=== PATIENT | female | born 1940 | race Caucasian/White ===

== ENCOUNTER 2017-03-27 12:48 | Observation (INO) | payer MEDICARE, OTHER ==
[2017-03-27] VITALS (8 sets, daily range): BP systolic 135–173; BP diastolic 78–85; PULSE 62–81; RESP 16–18; TEMP 97.1–98.6; O2SAT 93–98
[~2017-03-27 12:48] MED LIST: ADVA500A INH; ALLO300T2 PO; ALPR0.5T3 PO; ASPI81 PO; CALC.25 PO; DILT300C PO; HYDR200T42 PO; LEVO.05 PO; NORC7.5T PO; POTA-243 PO; PRAV40TA PO; RANI300T PO; TAB-TAB PO; TORS1TAB12 PO
[2017-03-27] MEDS ORDERED: SODIUM CHLOR 0.9% 1000 ML INJ 1,000 ML IV ONE (12:55)
[2017-03-27] MEDS ORDERED: SODIUM CHLORIDE 0.9% FLUSH 10 ML FLUSH IVF PRN (13:00)
[2017-03-27 13:22] LABS: AUTOMATED NEUTROPHIL # 2.2 TH/MM3 (1.8-7.7); BASOPHIL % 1.1 % (0.0-2.0); EOSINOPHIL # 0.1 TH/MM3 (0-0.4); EOSINOPHIL % 2.9 % (0.0-4.0); HEMO FLAGS DIFF FINAL; LYMPH % 20.3 % (9.0-44.0); LYMPHOCYTE # 0.7 TH/MM3 (1.0-4.8); MEAN CORPUSCULAR HEMOGLOBIN 30.2 PG (27.0-34.0); MEAN CORPUSCULAR HGB CONC 33.6 % (32.0-36.0); MONO % 13.7 % (0.0-8.0); PLATELET COUNT 152 TH/MM3 (150-450); RED BLOOD COUNT 4.01 MIL/MM3 (4.00-5.30); RED CELL DISTRIBUTION WIDTH 12.6 % (11.6-17.2); WHITE BLOOD COUNT 3.5 TH/MM3 (4.0-11.0)
[2017-03-27 13:29] LABS: POTASSIUM 3.7 MEQ/L (3.5-5.1)
[2017-03-27 13:32] LABS: BICARBONATE 22.6 MEQ/L (21.0-32.0)
--- NOTE | 2017-03-27 13:51 | RADRPT ---
EXAM DATE/TIME: 03/27/2017 13:26 [facility] COMPARISON: No previous studies available for comparison. INDICATIONS : Left upper and lower extremity numbness since yesterday. RADIATION DOSE: 65.14 CTDIvol (mGy) MEDICAL HISTORY : Hypertension. Chronic obstructive pulmonary disease.Renail failure. SURGICAL HISTORY : Hysterectomy. Right breast lumpectomy. ENCOUNTER: Initial ACUITY: 2 days PAIN SCALE: 0/10 LOCATION: Left cranial TECHNIQUE: Multiple contiguous axial images were obtained of the head. Using automated exposure control and adj ustment of the mA and/or kV according to patient size, radiation dose was kept as low as reasonably a chievable to obtain optimal diagnostic quality images. DICOM format image data is available electro nically for review and comparison. FINDINGS: CEREBRUM: The ventricles are normal for age. No evidence of midline shift, mass lesion, hemorrhage or acute in farction. No extra-axial fluid collections are seen. POSTERIOR FOSSA: The cerebellum and brainstem are intact. The 4th ventricle is midline. The cerebellopontine angle i s unremarkable. EXTRACRANIAL: The visualized portion of the orbits is intact. SKULL: The calvaria is intact. No evidence of skull fracture. CONCLUSION: Normal examination for a patient of this age. James Morrison MD on March 27, 2017 at 13:47 Board Certified Radiologist. This report was verified electronically.
--- NOTE | 2017-03-27 14:18 | PD ---
HPI Chief Complaint: Neuro Symptoms/ Deficits Time Seen by Provider: 12:55 Travel History International Travel<30 days: No Contact w/Intl Traveler<30days: No Traveled to known affect area: No History of Present Illness HPI The patient is 76 years old. She developed left arm and left leg weakness yesterday afternoon. She describes her left leg and arm as feeling very heavy. Symptoms have been more or less constant since their onset. She has no other complaint. She denies history of stroke. Location neurologic. Timing constant. PFSH Past Medical History Arthritis: Yes Asthma: Yes Autoimmune Disease: Yes (CHRONIC RENAL FAILURE) Blood Disorders: No Heart Rhythm Problems: No Cancer: No Cardiovascular Problems: Yes High Cholesterol: Yes Chest Pain: No Congestive Heart Failure: No COPD: Yes Cerebrovascular Accident: No Diabetes: No Diminished Hearing: No Gastrointestinal Disorders: Yes GERD: Yes Genitourinary: Yes Headaches: No Hiatal Hernia: Yes Hypertension: Yes Immune Disorder: Yes (LUPUS) Kidney Stones: No Musculoskeletal: Yes Neurologic: No Psychiatric: No Reproductive: No Respiratory: No Migraines: No Myocardial Infarction: No Renal Failure: Yes (RELATED TO LUPUS (NO DIALYSIS)) Seizures: No Sleep Apnea: No Thyroid Disease: Yes Influenza Vaccination: Yes ?: Not Past Surgical History AICD: No Arteriovenous Shunt: No Gynecologic Surgery: Yes (HYSTERECTOMY 1979, LUMPECTOMY RIGHT BREAST) Hysterectomy: Yes Insulin Pump: No Joint Replacement: No Pacemaker: No Other Surgery: Yes (HYSTERECTOMY BREAST CYST RIGHT BX THYROID ) Social History Alcohol Use: Yes (ONCE WEEKLY) Tobacco Use: No Substance Use: No Allergies-Medications (Allergen,Severity, Reaction): Coded Allergies: Sulfa (Verified Allergy, Severe, HIVES, 10/25/12) Reported Meds & Prescriptions Reported Meds & Active Scripts Active Reported [place] 7.5/325 (Hydrocodone-Acetaminophen) 7.5 Mg/325 Mg Tab 1-2 Tab PO Q6-8HPRN Allopurinol 300 Mg Tab 300 Mg PO DAILY Torsemide 20 Mg Tab 20 Mg PO DAILY Pravachol (Pravastatin Sodium) 40 Mg Tab 40 Mg PO DAILY Ranitidine Hcl (Ranitidine HCl) 300 Mg Cap 300 Mg PO DAILY Synthroid (Levothyroxine Sodium) 50 Mcg Tab 50 Mcg PO DAILY K-Dur (Potassium Chloride) 10 Meq Tabcr 10 Meq PO DAILY Aspirin 81 Mg Tab 81 Mg PO DAILY Alprazolam 0.5 Mg Tab 0.5 Mg PO TID Multivitamin (Multivitamins) 1 Tab Tab 1 Tab PO DAILY Rocaltrol (Calcitriol) 0.25 Mcg Cap 0.25 Mcg PO DAILY Advair Diskus 500/50 (Salmeterol Xinafoate/Fluticasone) 500 Mcg/50 Mcg Inhp 1 Puff INH BID Plaquenil (Hydroxychloroquine Sulfate) 200 Mg Tab 200 Mg PO BID Cardizem Cd (Diltiazem HCl) 300 Mg Cap 300 Mg PO DAILY Review of Systems Except as stated in HPI: all other systems reviewed are Neg Physical Exam Narrative GENERAL: 76-year-old female pleasant well-nourished well-developed SKIN: Focused skin assessment warm/dry. HEAD: Atraumatic. Normocephalic. EYES: Pupils equal and round. No scleral icterus. No injection or drainage. ENT: No nasal bleeding or discharge. Mucous membranes pink and moist. NECK: Trachea midline. No JVD. CARDIOVASCULAR: Regular rate and rhythm. No murmur appreciated. RESPIRATORY: No accessory muscle use. Clear to auscultation. Breath sounds equal bilaterally. GASTROINTESTINAL: Abdomen soft, non-tender, nondistended. Hepatic and splenic margins not palpable. MUSCULOSKELETAL: No obvious deformities. No clubbing. No cyanosis. No edema. NEUROLOGICAL: The cranial nerves of the face are normal. Handgrip is slightly decreased on left side compared to right. There is a pronator drift on the left side. The patient is unable to lift the left leg off the bed. PSYCHIATRIC: Appropriate mood and affect; insight and judgment normal. Data Data Last Documented VS Vital Signs Date Time Temp Pulse Resp B/P Pulse Ox O2 Delivery O2 Flow Rate FiO2 03/27/17 14:02 75 18 150/82 98 Room Air 03/27/17 12:57 98.6 Vital signs reviewed Orders Electrocardiogram (03/27/17 12:55) Complete Blood Count With Diff (03/27/17 12:55) Basic Metabolic Panel (Bmp) (03/27/17 12:55) Ct Brain W/O Iv Contrast(Rout) (03/27/17 12:55) Ecg Monitoring (03/27/17 12:55) Iv Access Insert/Monitor (03/27/17 12:55) Oximetry (03/27/17 12:55) Sodium Chloride 0.9% Flush (Ns Flush) (03/27/17 13:00) Mri Brain W/O Contrast (03/27/17 12:55) Mra Brain W/O Contrast (Cow) (03/27/17 12:55) Mra Carotids W Contrast (03/27/17 12:55) Neuro Checks Q2HX12,Q4H (03/27/17 12:55) Activity Bed Rest (03/27/17 12:55) Sodium Chlor 0.9% 1000 Ml Inj (Ns 1000 M (03/27/17 12:55) Aspirin (Aspirin) (03/27/17 14:30) Consult Neurology (03/27/17 ) Admit Order (Ed Use Only) (03/27/17 14:28) Place In Observation (03/27/17 ) Vital Signs (Adult) Q4H (03/27/17 14:28) Neuro Checks Q4H (03/27/17 14:28) Activity Oob With Assistance (03/27/17 14:28) Inspector Material Disposition / Telemetry .CONTINUOUS (03/27/17 14:28) Diet Npo (03/27/17 Dinner) Sodium Chloride 0.9% Flush (Ns Flush) (03/27/17 14:30) Sodium Chloride 0.9% Flush (Ns Flush) (03/27/17 21:00) Acetaminophen (Tylenol) (03/27/17 14:30) Ondansetron Inj (Zofran Inj) (03/27/17 14:30) Basic Metabolic Panel (Bmp) (03/28/17 06:00) Complete Blood Count With Diff (03/28/17 06:00) Resp Oxygen Theo C Titrat 1-4 L (03/27/17 ) Pt Request For Service (03/27/17 14:28) Ot Request For Service (03/27/17 14:28) Enoxaparin Inj (Lovenox Inj) (03/27/17 15:00) Naloxone Inj (Narcan Inj) (03/27/17 14:30) Docusate Sodium-Senna (Valeria-Colace) (03/27/17 21:00) Magnesium Hydroxide Liq (Milk Of Magnesi (03/27/17 14:30) Sennosides (Senokot) (03/27/17 14:30) Bisacodyl Supp (Dulcolax Supp) (03/27/17 14:30) Lactulose Liq (Lactulose Liq) (03/27/17 14:30) Labs Laboratory Tests Test 03/27/17 13:14 White Blood Count 3.5 TH/MM3 Red Blood Count 4.01 MIL/MM3 Hemoglobin 12.1 GM/DL Hematocrit 36.0 % Mean Corpuscular Volume 90.0 FL Mean Corpuscular Hemoglobin 30.2 PG Mean Corpuscular Hemoglobin 33.6 % Concent Red Cell Distribution Width 12.6 % Platelet Count 152 TH/MM3 Mean Platelet Volume 7.5 FL Neutrophils (%) (Auto) 62.0 % Lymphocytes (%) (Auto) 20.3 % Monocytes (%) (Auto) 13.7 % Eosinophils (%) (Auto) 2.9 % Basophils (%) (Auto) 1.1 % Neutrophils # (Auto) 2.2 TH/MM3 Lymphocytes # (Auto) 0.7 TH/MM3 Monocytes # (Auto) 0.5 TH/MM3 Eosinophils # (Auto) 0.1 TH/MM3 Basophils # (Auto) 0.0 TH/MM3 CBC Comment DIFF FINAL Differential Comment Sodium Level 139 MEQ/L Potassium Level 3.7 MEQ/L Chloride Level 106 MEQ/L Carbon Dioxide Level 22.6 MEQ/L Anion Gap 10 MEQ/L Blood Urea Nitrogen 24 MG/DL Creatinine 1.20 MG/DL Estimat Glomerular Filtration 44 ML/MIN Rate Random Glucose 99 MG/DL Calcium Level 9.4 MG/DL MDM Medical Decision Making Medical Screen Exam Complete: Yes Emergency Medical Condition: Yes Medical Record Reviewed: Yes Differential Diagnosis Stroke, TIA, spinal cord injury, radiculopathy Narrative Course EKG: Sinus, rate 72, LAFB CBC & BMP Diagram 03/27/17 13:14 Last [address] 03/27/17 1255 Signed Impressions: Service Date/Time: Monday, March 27, 2017 13:26 - CONCLUSION: Normal examination for a patient of this age. James Morrison MD PT to be admitted for CVA evaluation. D/w Dr Torrez D/w Dr Davalos Diagnosis Primary Impression: Stroke Qualified Code: I63.9 - Cerebrovascular accident (CVA), unspecified mechanism Admitting Information Admitting Physician Requests: Observation Alex Kingsley MD Mar 27, 2017 14:18
[2017-03-27] MEDS ORDERED: ONDANSETRON HCL 4 MG/2 ML VIAL IVP PRN (14:30)
[2017-03-27] MEDS ORDERED: ASPIRIN 325 MG TAB PO ONE (14:30)
[2017-03-27] MEDS ORDERED: MAGNESIUM HYDROXIDE SUSP 30 ML CUP PO PRN (14:30)
[2017-03-27] MEDS ORDERED: SODIUM CHLORIDE 0.9% FLUSH 10 ML FLUSH IV FLUSH PRN (14:30)
[2017-03-27] MEDS ORDERED: NALOXONE HCL 0.4 MG/ML AMP IV PRN (14:30)
[2017-03-27] MEDS ORDERED: ACETAMINOPHEN 325 MG TAB PO PRN (14:30)
[2017-03-27] MEDS ORDERED: SENNOSIDES 8.6 MG TAB PO PRN (14:30)
[2017-03-27] MEDS ORDERED: LACTULOSE SYRUP 20 GM/30 ML CUP PO PRN (14:30)
[2017-03-27] MEDS ORDERED: BISACODYL 10 MG SUPP RECTAL PRN (14:30)
[2017-03-27] MEDS: ENOXAPARIN SODIUM 40 MG/0.4 ML SYRINGE SQ SCH (14:47)
[2017-03-27] MEDS ORDERED: GADODIAMIDE PF 287 MG/ML 20 ML VIAL (for RAD MRI) IV ONE (14:48)
--- NOTE | 2017-03-27 15:06 | HHI.HP ---
HPI Service [facility] Primary Care Physician Jose Torrez MD Admission Diagnosis CVA Diagnoses: Chief Complaint: Left arm and left leg weakness. Travel History International Travel<30 Days: No Contact w/Intl Traveler <30 Da: No Traveled to Known Affected Are: No History of Present Illness Ms. Bhardwaj is a pleasant 76-year-old female with a history of SLE and lupus nephritis, hypertension who presents to the emergency department due to left- sided upper and lower extremity weakness. At around 4 PM on 03/26/2017 patient was watching TV and suddenly noticed her left side was very weak. She did not have any facial asymmetry or speech difficulty. She did not have any chest pain , shortness of breath, cough. No fever or chills. Her symptoms persisted throughout the day and night. She she will hope for resolution of her symptoms. Due to persistent symptoms patient decided to come to the Department for further evaluation. Patient denies any changes in bowel or bladder habits. She used to take aspirin once a day. However she stopped taking aspirin 6 months ago. Review of Systems Except as stated in HPI: all other systems reviewed are Neg Past Family Social History Past Medical History SLE, chronic kidney disease Past Surgical History Hysterectomy 1979, right breast lumpectomy Reported Medications [place] 7.5/325 (Hydrocodone-Acetaminophen) 7.5 Mg/325 Mg Tab 1-2 Tab PO Q6-8HPRN Allopurinol 300 Mg Tab 300 Mg PO DAILY Torsemide 20 Mg Tab 20 Mg PO DAILY Pravachol (Pravastatin Sodium) 40 Mg Tab 40 Mg PO DAILY Ranitidine Hcl (Ranitidine HCl) 300 Mg Cap 300 Mg PO DAILY Synthroid (Levothyroxine Sodium) 50 Mcg Tab 50 Mcg PO DAILY K-Dur (Potassium Chloride) 10 Meq Tabcr 10 Meq PO DAILY Aspirin 81 Mg Tab 81 Mg PO DAILY Alprazolam 0.5 Mg Tab 0.5 Mg PO TID Multivitamin (Multivitamins) 1 Tab Tab 1 Tab PO DAILY Rocaltrol (Calcitriol) 0.25 Mcg Cap 0.25 Mcg PO DAILY Advair Diskus 500/50 (Salmeterol Xinafoate/Fluticasone) 500 Mcg/50 Mcg Inhp 1 Puff INH BID Plaquenil (Hydroxychloroquine Sulfate) 200 Mg Tab 200 Mg PO BID Cardizem Cd (Diltiazem HCl) 300 Mg Cap 300 Mg PO DAILY Allergies: Coded Allergies: Sulfa (Verified Allergy, Severe, HIVES, 10/25/12) Family History Grandmother had stroke. Social History Drinks about once a week. Denies using tobacco or illicit drugs. Physical Exam Vital Signs Vital Signs Date Time Temp Pulse Resp B/P Pulse Ox O2 Delivery O2 Flow Rate FiO2 03/27/17 14:32 93 03/27/17 14:02 75 18 150/82 98 Room Air 03/27/17 13:11 74 18 171/85 98 Room Air 03/27/17 12:57 98.6 81 18 173/85 97 Physical Exam GENERAL: This is a well-nourished, well-developed patient, in no apparent distress. SKIN: No rashes, ecchymoses or lesions. Warm and dry. HEAD: Atraumatic. Normocephalic. No temporal or scalp tenderness. EYES: Pupils equal round and reactive. No injection or drainage. ENT: Nose without bleeding, purulent drainage or septal hematoma. Airway patent. NECK: Trachea midline. No lymphadenopathy. Supple, nontender, no meningeal signs. CARDIOVASCULAR: Regular rate and rhythm without murmurs, gallops, or rubs. No JVD. RESPIRATORY: Clear to auscultation. Breath sounds equal bilaterally. No wheezes , rales, or rhonchi. GASTROINTESTINAL: Abdomen soft, non-tender, nondistended. No guarding. MUSCULOSKELETAL: Extremities without clubbing, cyanosis, or edema. NEUROLOGICAL: Awake and alert. Cranial nerves II through XII intact. LUE 4/5 and LLE 3/5. Normal speech. Laboratory Laboratory Tests Test 03/27/17 13:14 White Blood Count 3.5 Red Blood Count 4.01 Hemoglobin 12.1 Hematocrit 36.0 Mean Corpuscular Volume 90.0 Mean Corpuscular Hemoglobin 30.2 Mean Corpuscular Hemoglobin 33.6 Concent Red Cell Distribution Width 12.6 Platelet Count 152 Mean Platelet Volume 7.5 Neutrophils (%) (Auto) 62.0 Lymphocytes (%) (Auto) 20.3 Monocytes (%) (Auto) 13.7 Eosinophils (%) (Auto) 2.9 Basophils (%) (Auto) 1.1 Neutrophils # (Auto) 2.2 Lymphocytes # (Auto) 0.7 Monocytes # (Auto) 0.5 Eosinophils # (Auto) 0.1 Basophils # (Auto) 0.0 CBC Comment DIFF FINAL Differential Comment Sodium Level 139 Potassium Level 3.7 Chloride Level 106 Carbon Dioxide Level 22.6 Anion Gap 10 Blood Urea Nitrogen 24 Creatinine 1.20 Estimat Glomerular Filtration 44 Rate Random Glucose 99 Calcium Level 9.4 Result Diagram: 03/27/17 1314 03/27/17 1314 Imaging Last Impressions Head CT 03/27/17 1255 Signed Impressions: Service Date/Time: Monday, March 27, 2017 13:26 - CONCLUSION: Normal examination for a patient of this age. James Morrison MD Assessment and Plan Problem List: (1) Acute CVA (cerebrovascular accident) ICD Code: I63.9 Status: Acute (2) Hypertension ICD Code: I10 Status: Acute (3) CKD (chronic kidney disease) stage 3, GFR 30-59 ml/min ICD Code: N18.3 Status: Acute (4) SLE (systemic lupus erythematosus) ICD Code: M32.9 Status: Acute Assessment and Plan Ms. Bhardwaj is a pleasant 76-year-old female with a history of SLE, lupus nephritis, hypertension who presents to the emergency department today due to left-sided weakness that started around 4 PM on 03/26/2017. Patient denies any facial asymmetry, speech difficulty. CT head shows no acute ischemia or hemorrhage. - Probable acute cerebrovascular accident - MRI brain and MRA brain as well as carotid ultrasound pending. - Patient received aspirin in the emergency department. We'll continue aspirin 325 mg daily. - Will obtain lipid profile and based on ASCVD score, we will consider statin. - Neurology consult pending. - PT/OT consult pending. Patient is able to swallow well. Will continue heart healthy diet. - Continue telemetry. - SLE - CKD stage III - likely due to lupus nephritis - Creatinine 1.20. Continue to monitor and avoid nephrotoxins. - Hypertension - Patient takes Diltiazem for HTN. Discussed with patient at length - she denies any history of Afib. - Will not start Diltiazem. Start Nifedipine 30mg Qday tomorrow. - Permissive hypertension is reasonable for now up to BP 220/110 Full code. Lovenox. Linda Davalos DO Mar 27, 2017 3:06 pm
--- NOTE | 2017-03-27 15:18 | RADRPT ---
EXAM DATE/TIME: 03/27/2017 14:14 [facility] COMPARISON: No previous studies available for comparison. INDICATIONS : Left sided weakness. MEDICAL HISTORY : Renal failure, chronic. Hypertension. SURGICAL HISTORY : Hysterectomy. ENCOUNTER: Initial ACUITY: 1 day PAIN SCORE: 0/10 LOCATION: cranial TECHNIQUE: Multiplanar, multisequence MRI of the brain was performed without contrast. FINDINGS: There is an acute infarct in the deep white matter of the right parietal lobe measuring around 1 cm i n diameter. There is also a tiny subcentimeter infarct in the right frontal lobe. This may be seconda ry to embolic phenomenon. Minimal white matter ischemic change. No mass, hemorrhage or shift. No hydr ocephalus. No abnormal extra-axial fluid collections. CONCLUSION: 1. Small acute infarcts in the deep white matter in the right posterior periventricular region and al so peripherally in the right frontal lobe, possibly embolic. Minimal white matter ischemic change. James Morrison MD on March 27, 2017 at 15:12 Board Certified Radiologist. This report was verified electronically.
--- NOTE | 2017-03-27 15:20 | RADRPT ---
EXAM DATE/TIME: 03/27/2017 14:14 [facility] COMPARISON: No previous studies available for comparison. INDICATIONS : Left sided weakness. MEDICAL HISTORY : Hypertension. Renal failure, chronic. SURGICAL HISTORY : Hysterectomy. ENCOUNTER: Initial ACUITY: 1 day PAIN SCORE: 0/10 LOCATION: cranial Please note a normal MRA of the brain does not entirely exclude the possibility of a small aneurysm, nor the possibility of distal intracranial vessel disease. TECHNIQUE: 3D time of flight MRA was performed. Source images, multiplanar STS MIP, and 3D volume MIP reconstru ctions were reviewed. FINDINGS: There is excellent visualization of the major intracranial arteries out to the second-order branch ve ssels. There is no evidence for aneurysm, vessel truncation or stenosis, and no evidence for vascula r malformation. CONCLUSION: Normal examination for a patient of this age. James Morrison MD on March 27, 2017 at 15:16 Board Certified Radiologist. This report was verified electronically.
[2017-03-27] MEDS ORDERED: LEVO.05 PO (15:40)
[2017-03-27] MEDS ORDERED: DILT300C3 PO (15:40)
--- NOTE | 2017-03-27 15:40 | RADRPT ---
EXAM DATE/TIME: 03/27/2017 14:14 [facility] COMPARISON: No previous studies available for comparison. INDICATIONS : Left side weakness. CONTRAST: 20 cc Omniscan (gadodiamide) IV MEDICAL HISTORY : Hypertension. Renal failure, chronic. SURGICAL HISTORY : Hysterectomy. ENCOUNTER: Initial ACUITY: 1 day PAIN SCORE: 0/10 LOCATION: neck Percent stenosis is calculated using the diameter of the stenotic region over the diameter of the nor mal distal internal carotid artery. TECHNIQUE: Bolus infused MRA of the extracranial circulation was performed using a neurovascular coil. Post pro cessing was performed including rotating subvolume maximum intensity projections of each carotid elsa ry, rotating full volume maximum intensity projections of both carotid arteries, sagittal and coronal sliding thin slab reformations of each carotid artery, and left oblique sliding thin slab reformatio n through the aortic arch to include the origin of the arch branch vessels. FINDINGS: AORTIC ARCH: There is a three vessel origin of the great vessels from the aorta. No evidence of ostial narrowing. RIGHT CAROTID: The common carotid artery is intact. The carotid bulb has a normal configuration without ulceration or narrowing. The internal carotid artery lumen is smooth without stenosis. The external carotid ar nile is intact. LEFT CAROTID: The common carotid artery is intact. The carotid bulb has a normal configuration without ulceration or narrowing. The internal carotid artery lumen is smooth without stenosis. The external carotid ar nile is intact. VERTEBRALS: The vertebral arteries have a symmetric diameter. No stenotic lesions are seen. CONCLUSION: Normal examination for a patient of this age. James Morrison MD on March 27, 2017 at 15:36 Board Certified Radiologist. This report was verified electronically.
[2017-03-27] MEDS ORDERED: PILL SPLITTER OTHER PRN (19:15)
[2017-03-27] MEDS: SODIUM CHLORIDE 0.9% FLUSH 10 ML FLUSH IV FLUSH SCH (21:00)
[2017-03-27] MEDS: DOCUSATE SODIUM 50 MG/SENNA 8.6 MG TAB PO SCH (22:08)
[2017-03-28] VITALS: BP 131/70; PULSE 60; RESP 16; TEMP 96; O2SAT 96
[2017-03-28 04:00] VITALS: BP 142/74; PULSE 65; RESP 16; TEMP 96.8; O2SAT 96
[2017-03-28 06:39] LABS: AUTOMATED NEUTROPHIL # 2.1 TH/MM3 (1.8-7.7); BASOPHIL % 1.5 % (0.0-2.0); EOSINOPHIL # 0.1 TH/MM3 (0-0.4); EOSINOPHIL % 4.4 % (0.0-4.0); HEMATOCRIT 33.8 % (35.0-46.0); HEMO FLAGS DIFF FINAL; LYMPH % 19.4 % (9.0-44.0); LYMPHOCYTE # 0.6 TH/MM3 (1.0-4.8); MEAN CELL VOLUME 89.9 FL (80.0-100.0); MEAN CORPUSCULAR HEMOGLOBIN 30.1 PG (27.0-34.0); MEAN CORPUSCULAR HGB CONC 33.5 % (32.0-36.0); MONO % 11.3 % (0.0-8.0); NEUT % 63.4 % (16.0-70.0); PLATELET COUNT 156 TH/MM3 (150-450); RED BLOOD COUNT 3.77 MIL/MM3 (4.00-5.30); RED CELL DISTRIBUTION WIDTH 12.7 % (11.6-17.2); WHITE BLOOD COUNT 3.1 TH/MM3 (4.0-11.0)
[2017-03-28 06:48] LABS: POTASSIUM 3.7 MEQ/L (3.5-5.1)
[2017-03-28 07:01] LABS: BICARBONATE 22.4 MEQ/L (21.0-32.0)
[2017-03-28 08:00] VITALS: BP 154/77; PULSE 68; RESP 18; TEMP 97.8; O2SAT 96; O2SAT 97
[2017-03-28] MEDS ORDERED: NIFEdipine 30 MG SUSTAINED RELEASE TAB PO SCH (09:00)
[2017-03-28] MEDS ORDERED: ASPIRIN 325 MG TAB PO SCH (09:00)
[2017-03-28] MEDS: SODIUM CHLORIDE 0.9% FLUSH 10 ML FLUSH IV FLUSH SCH (09:00)
[2017-03-28] MEDS ORDERED: CLOPIDOGREL 75 MG TAB PO SCH (09:00)
[2017-03-28] MEDS ORDERED: amLODIPine BESYLATE 5 MG TAB PO SCH (09:00)
--- NOTE | 2017-03-28 09:32 | MB ---
cc: SANDY MIRAMONTES M.D. DATE OF CONSULTATION 03/28/2017 REASON FOR CONSULTATION The patient is a 76-year-old with history of having the onset of symptoms the day before yesterday. She only came yesterday to the emergency room. I spoke to the ED physician. The patient developed sudden onset left-sided weakness and decided to wait until the next day as she wanted to see if the symptoms would improve. She realized she was having a stroke. PAST MEDICAL HISTORY 1. She has a history of hyperlipidemia. 2. Low thyroid. 3. She has a history of some apparent renal dysfunction. 4. Lupus. MEDICATIONS Apparently she does not take much medication and no reported aspirin, she denies taking aspirin on a regular basis at the time of my inquiry earlier today. NEUROLOGICAL EXAMINATION On exam the patient was awake, alert pleasant, cooperative. Mentation is normal. Ocular movements and visual oreilly full. Pupils equal and reactive. She is having normal speech but there is some hemiparesis involving arm and leg. There is a mild arm drift and mild weakness on the left second class welder in comparison to the right. She has mild to moderate left lower extremity weakness on the bedside exam. Reflexes 1+ at the elbows and knees, reduced at the ankles. Plantar responses flexor right, equivocal left. IMAGING STUDIES MRI brain showed a small acute infarcts on the right posterior periventricular and also right frontal lobe suggesting embolic events. MRA head and neck essentially normal. LABORATORY DATA Pending a lipid profile. Initial chemistry with slightly elevated BUN and creatinine, though today's numbers are improved. CBC with white count low, being 3.5 yesterday and 3.1 today, hemoglobin 12.1, platelets 152. 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 Unclear if she has been on aspirin or not as discussed above. RECOMMENDATIONS For the time being I will add Plavix to the aspirin therapy and if she stays on this regimen it should be for 6-8 weeks. We will check an echocardiogram. May need transesophageal echocardiogram as the strokes are suspected to be embolic. The patient has a heart monitor. The EKG initially showed sinus rhythm. Thank you for asking us to assist in her care. MD DARLINE Mendez/FLOR[place] /8:17 AM /9:28 AM
--- NOTE | 2017-03-28 09:45 | HHI.PR ---
Subjective Remarks Follow up for acute stroke right MCA distribution. Patient is doing well. Her left sided weakness is improving. No chest pain, SOB, fever, chills. Wants to go home today. Objective Vitals Vital Signs Date Time Temp Pulse Resp B/P Pulse Ox O2 Delivery O2 Flow Rate FiO2 03/28/17 08:00 97.8 68 18 154/77 97 03/28/17 08:00 96 21 03/28/17 04:00 96.8 65 16 142/74 96 03/28/17 00:00 96.0 60 16 131/70 96 03/27/17 21:00 63 03/27/17 20:00 97.1 62 16 135/85 98 03/27/17 20:00 98 21 03/27/17 16:00 97.6 67 18 146/78 97 03/27/17 15:59 67 155/79 98 03/27/17 14:32 93 03/27/17 14:02 75 18 150/82 98 Room Air 03/27/17 13:11 74 18 171/85 98 Room Air 03/27/17 12:57 98.6 81 18 173/85 97 I/O 03/27/17 03/27/17 03/27/17 03/28/17 03/28/17 03/28/17 07:00 15:00 23:00 07:00 15:00 23:00 Intake Total 1215 ml Balance 1215 ml Intake Oral 240 ml IV Total 975 ml # Voids 2 # Bowel Movements 0 Result Diagram: 03/28/17 0600 03/28/17 0600 Imaging Last Impressions Neck Magnetic Resonance Angiography 03/27/17 1255 Signed Impressions: Service Date/Time: Monday, March 27, 2017 14:14 - CONCLUSION: Normal examination for a patient of this age. James Morrison MD Head Magnetic Resonance Angiography 03/27/17 1255 Signed Impressions: Service Date/Time: Monday, March 27, 2017 14:14 - CONCLUSION: Normal examination for a patient of this age. James Morrison MD Head CT 03/27/17 1255 Signed Impressions: Service Date/Time: Monday, March 27, 2017 13:26 - CONCLUSION: Normal examination for a patient of this age. James Morrison MD Brain MRI 03/27/17 1253 Signed Impressions: Service Date/Time: Monday, March 27, 2017 14:14 - CONCLUSION: 1. Small acute infarcts in the deep white matter in the right posterior periventricular region and also peripherally in the right frontal lobe, possibly embolic. Minimal white matter ischemic change. James Morrison MD Objective Remarks GENERAL: AOX3, NAD. SKIN: Warm and dry. HEAD: Normocephalic. EYES: No scleral icterus. No injection or drainage. NECK: Supple, trachea midline. No JVD or lymphadenopathy. CARDIOVASCULAR: Regular rate and rhythm without murmurs, gallops, or rubs. RESPIRATORY: Breath sounds equal bilaterally. No accessory muscle use. GASTROINTESTINAL: Abdomen soft, non-tender, nondistended. MUSCULOSKELETAL: No cyanosis, or edema. Left sided weakness improved. Left lower ext 4/5. BACK: Nontender without obvious deformity. No CVA tenderness. Procedures None. A/P Problem List: (1) Acute CVA (cerebrovascular accident) ICD Code: I63.9 Status: Acute (2) Hypertension ICD Code: I10 Status: Acute (3) CKD (chronic kidney disease) stage 3, GFR 30-59 ml/min ICD Code: N18.3 Status: Acute (4) SLE (systemic lupus erythematosus) ICD Code: M32.9 Status: Acute Assessment and Plan Ms. Bhardwaj is a pleasant 76-year-old female with a history of SLE, lupus nephritis, hypertension who presents to the emergency department today due to left-sided weakness that started around 4 PM on 03/26/2017. Patient denies any facial asymmetry, speech difficulty. CT head shows no acute ischemia or hemorrhage. - acute stroke, MCA distribution - appears to be embolic. - MRI brain reviewed by me, shows right posterior periventricular stroke as well as right frontal lobe stroke, possibly embolic. - Patient received aspirin in the emergency department. - Neurology consult evaluated patient. Recommends Aspirin, plavix for 6-8 weeks. - Will obtain 2D echo today. If it looks unremarkable, patient may be able to go home today. - Discussed with neurologist, Dr. Torrez who agrees with discharge plan if Echo is okay. - Continue telemetry. - ASCVD score is over 24%, we will start Lipitor 40mg QHS. - SLE - CKD stage III - likely due to lupus nephritis - Creatinine 1.20 --> 1.00. Continue to monitor and avoid nephrotoxins. - Hypertension - Patient takes Diltiazem for HTN. Discussed with patient at length - she denies any history of Afib. - Increase Amlodipine 2.5 to 5mg Qday. Full code. Jesse. Linda Davalos DO Mar 28, 2017 9:45 am
[2017-03-28] MEDS: DOCUSATE SODIUM 50 MG/SENNA 8.6 MG TAB PO SCH (10:01)
[2017-03-28] MEDS: ENOXAPARIN SODIUM 40 MG/0.4 ML SYRINGE SQ SCH (10:01)
[2017-03-28 10:03] LABS: HDL CHOLESTEROL 48.6 MG/DL (40.0-60.0)
--- NOTE | 2017-03-28 11:48 | HHI.FF ---
Face to Face Verification Diagnosis: (1) Acute CVA (cerebrovascular accident) (2) Hypertension (3) SLE (systemic lupus erythematosus) (4) CKD (chronic kidney disease) stage 3, GFR 30-59 ml/min Physical Therapy Order: Evaluate and Treat, Improve ambulation, Strength and gait training Occupational Therapy Order: Evaluate and Treat, Improve ADL, Gross motor coordination, Fine motor coordination I have seen patient Priscilla Bhardwaj on 03/28/17. My clinical findings support the need for the requested home health care services because: Deconditioned w/ increased weakness Limited ability to care for self Need for psychosocial assistance High risk of falls I certify that my clinical findings support that this patient is homebound because: Unsteady gait/balance Unsafe to leave home unassisted Need for psychosocial assistance Unable to use public transportation Linda Davalos DO Mar 28, 2017 11:48 am
[2017-03-28] MEDS ORDERED: PLAV75TA29 PO (11:50)
[2017-03-28] MEDS ORDERED: ASPI81CH25 PO (11:50)
[2017-03-28] MEDS ORDERED: AMLO5 PO (11:50)
[2017-03-28] MEDS ORDERED: ATOR40TA16 PO (11:50)
[2017-03-28 12:00] VITALS: BP 142/66; PULSE 71; RESP 18; TEMP 96.3; O2SAT 98
--- NOTE | 2017-03-28 15:19 | EKG ---
Date Performed: 03/27/2017 Time Performed: 13:03:16 PTAGE: 76 years EKG: Sinus rhythm LEFT ANTERIOR FASCICULAR BLOCK NONSPECIFIC T-WAVE ABNORMALITY Since previous tracing, no significant change noted ABNORMAL ECG PREVIOUS TRACING : 10/25/2012 01.29 DOCTOR: Elmo Page Interpretating Date/Time 03/28/2017 15:18:36
[2017-03-28 16:00] VITALS: BP 159/81; PULSE 70; RESP 20; TEMP 97.4; O2SAT 97
[2017-03-28] MEDS ORDERED: ATORVASTATIN 40 MG TAB PO SCH (21:00)
[2017-03-29] MEDS ORDERED: amLODIPine BESYLATE 5 MG TAB PO SCH (09:00)
[2017-03-29] MEDS ORDERED: ASPIRIN 81 MG CHEW TAB PO SCH (09:00)
== END 2017-03-28 17:14 | disposition home or self-care (01) ==
LOC: PHED 12:48 → PHEDA 14:30 → INTOOBSV 14:30 → PH3B 15:55
PROVIDERS: ADMIT Hospitalist; ATTEND Hospitalist
DX: I63.411 Cerebral infarction due to embolism of right middle cerebral artery (principal); I44.4 Left anterior fascicular block; R94.31 Abnormal electrocardiogram [ECG] [EKG]; I25.10 Atherosclerotic heart disease of native coronary artery without angina pectoris; I12.9 Hypertensive chronic kidney disease with stage 1 through stage 4 chronic kidney disease, or unspecified chronic kidney disease; N18.3 Chronic kidney disease, stage 3 (moderate); E78.5 Hyperlipidemia, unspecified; E78.00 Pure hypercholesterolemia, unspecified; M32.9 Systemic lupus erythematosus, unspecified; J44.9 Chronic obstructive pulmonary disease, unspecified; E07.9 Disorder of thyroid, unspecified; K21.9 Gastro-esophageal reflux disease without esophagitis; M19.90 Unspecified osteoarthritis, unspecified site; Z79.899 Other long term (current) drug therapy
CPT/HCPCS: 70450; 70544; 70548; 70551; 80048; 80061; 85025; 93005; 96360; 96361; 97162; 97166; 99285; A9579; G0378; G8987; G8988; G8989; J1650; J7030

== ENCOUNTER 2017-05-06 12:02 | Day surgery (SDC) | payer OTHER ==
[~2017-05-06 12:02] MED LIST changes: -ADVA500A INH; -ALLO300T2 PO; -ALPR0.5T3 PO; +AMLO5 PO; -ASPI81 PO; +ASPI81CH25 PO; +ATOR40TA16 PO; -CALC.25 PO; -DILT300C PO; -HYDR200T42 PO; -NORC7.5T PO; +PLAV75TA29 PO; -POTA-243 PO; -PRAV40TA PO; -RANI300T PO; -TAB-TAB PO; -TORS1TAB12 PO
[2017-05-06] MEDS ORDERED: SODIUM CHLORID 0.9% 500 ML IV PRN (12:30)
[2017-05-06] MEDS ORDERED: LACTATED RINGER'S 1000 ML IV PRN (12:30)
[2017-05-06] MEDS ORDERED: CHLORHEXIDINE GLUCONATE 2 % 1 PACK (2 CLOTHS) TOPICAL PRN (12:30)
[2017-05-06] MEDS ORDERED: INSULIN HUMAN REGULAR 1,000 UNITS/10 ML VIAL SQ PRN (12:30)
[2017-05-06] MEDS ORDERED: POVIDONE IODINE 5% (ANTISEPSIS KIT) 4 APPLICATIONS EACH NARE PRN (12:30)
[2017-05-06] MEDS ORDERED: METOPROLOL TARTRATE 25 MG TAB PO PRN (12:30)
--- NOTE | 2017-05-07 17:42 | EKG ---
Date Performed: 05/06/2017 Time Performed: 12:46:56 PTAGE: 76 years EKG: Sinus rhythm Left anterior fascicular block Anterolateral T wave changes may be due to myocardial ischemia Clinic al correlation is recommended Abnormal ECG PREVIOUS TRACING : 03/27/2017 13.03 DOCTOR: Mo Mak Interpretating Date/Time 05/07/2017 17:40:33
--- NOTE | 2017-05-10 13:10 | CF ---
cc: CHRISTINA MENDOZA M.D. PROCEDURE Transesophageal echo. INDICATION CVA, rule out PFO and left atrial appendage thrombus. CONSENT A full informed consent was obtained prior to the procedure. The risks of , bleeding, perforation, aspiration, foreseen and unforeseen complications were reviewed. The patient fully appeared to understand the risks. PROCEDURAL STATEMENTS The patient was draped and prepped in the usual manner. Following a timeout anesthesia was given as per the Anesthesia Department. A full transesophageal echo was performed. Agitated contrast solution studies x2 were performed. FINDINGS 1. The left atrial appendage was free of thrombus. 2. The interatrial septum was intact. 3. The interventricular septum was intact. 4. The aortic valve was trileaflet and moved normally. 5. Trace aortic regurgitation was noted, mild tricuspid regurgitation and trace mitral regurgitation. 6. The mitral valve moved normally as did the tricuspid valve. 7. LV function was normal. 8. RV function was normal. 9. Agitated contrast solution x2 showed no evidence of PFO. 10. The aorta was visualized at 40 cm with no obvious plaquing or thrombus noted. CONCLUSIONS No obvious cause for CVA. No evidence of patent foramen ovale or atrial septal defect. No evidence of left atrial appendage thrombus. Christina Mendoza MD, FRCP,[facility] /8:53 AM /12:56 PM
== END 2017-05-06 15:20 | disposition home or self-care (01) ==
LOC: HDIC 12:02 → HDOC 12:02
PROVIDERS: ATTEND Internal Medicine Cardiovascular Disease
DX: I08.3 Combined rheumatic disorders of mitral, aortic and tricuspid valves (principal); I44.4 Left anterior fascicular block; I63.9 Cerebral infarction, unspecified
CPT/HCPCS: 93005; 93312; 93320; 93325

== ENCOUNTER 2017-08-05 10:55 | Day surgery (SDC) | payer OTHER ==
[2017-08-05] MEDS ORDERED: COQ150CA PO (12:19)
[2017-08-05] MEDS ORDERED: MUPIROCIN 2% OINT 1 APPLIC/GM SYR NASAL SCH (12:30)
[2017-08-05] MEDS ORDERED: CHLORHEXIDINE GLUCONATE 2 % 1 PACK (2 CLOTHS) TOPICAL SCH (12:30)
[2017-08-05] MEDS ORDERED: POVIDONE IODINE 5% (ANTISEPSIS KIT) 4 APPLICATIONS EACH NARE SCH (12:30)
[2017-08-05] MEDS ORDERED: NS 1000 ML IV SCH (12:30)
[2017-08-05] MEDS ORDERED: ceFAZolin 2 GM PREMIX 50 ML IV SCH (12:30)
[2017-08-05] MEDS ORDERED: VANCOMYCIN 1000 MG/NS 250 ML IV SCH ×2 (12:30)
--- NOTE | 2017-08-05 15:28 | MP ---
cc: LINDA RAND M.D., HUMAYUN A. M.D. DATE OF SURGERY: 08/05/2017 OPERATION: Loop recorder placement. INDICATION History of stroke rule out atrial fibrillation (cryptogenic stroke). CONSENT: Full informed consent was obtained before procedure, this included risks of , bleeding and infection, foreseen and foreseen complications reviewed. The patient agreed to proceed. The patient prepped, and draped, the patient was anesthetized using local lidocaine. ANESTHESIA: ANESTHESIA WAS NOT USED. THERE WAS NO SEDATION. PROCEDURE: Using the Medtronic scalpel a small incision was made and the loop recorder injected under the skin. Excellent sensing parameters were noted, the would was closed with Steri-Strips and the patient was left in stable condition. The patient was to be discharged later today, to follow up with my office in due course. CONCLUSION Successful placement of Medtronic loop recorder using a Medtronic insertion device. Christina Mendoza MD, FRCP,[facility]/marvel /1:51 PM /3:08 PM
== END 2017-08-05 14:45 | disposition home or self-care (01) ==
LOC: HCAT 10:55 → HDIC 10:55 → HCAT 14:45
PROVIDERS: ATTEND Internal Medicine Cardiovascular Disease
DX: I63.9 Cerebral infarction, unspecified (principal); I47.2 Ventricular tachycardia; I10 Essential (primary) hypertension; E78.5 Hyperlipidemia, unspecified; J44.9 Chronic obstructive pulmonary disease, unspecified
CPT/HCPCS: 33282; C1764; J3370; J7050